=== PATIENT | male | born 1955 | race Caucasian/White ===

== ENCOUNTER 2018-05-11 09:23 | Inpatient (IN) | payer OTHER ==
[~2018-05-11] VITALS: Ht 175.3 cm; Wt 93.4 kg
[2018-05-11] MEDS ORDERED: ACETAMINOPHEN 325MG TABLET PO ONE (10:15)
[2018-05-11] MEDS ORDERED: ROSU5TAB10 PO (10:18)
[2018-05-11] MEDS ORDERED: ALLO300T74 PO (10:18)
[2018-05-11] MEDS ORDERED: CYAN100096 PO (10:18)
[2018-05-11] MEDS ORDERED: ROSU5TAB10 MT (10:18)
[2018-05-11] MEDS ORDERED: LISI-604 PO (10:18)
[2018-05-11] MEDS ORDERED: THIA100T72 MT (10:18)
[2018-05-11] MEDS ORDERED: FURO40TA5 PO (10:18)
[2018-05-11 10:37] LABS: BASOPHILS % 0.6 % (0.0-2.0); EOSINOPHILS % 1.3 % (0.0-5.0); HEMATOCRIT. 38.3 % (42.0-52.0); HEMOGLOBIN. 12.9 g/dL (14.0-18.0); LYMPHOCYTES % 11.2 % (20.0-50.0); MEAN CORPUSCULAR HEMOGLOBIN 31.6 pg (28.0-32.0); MEAN CORPUSCULAR VOLUME 93.9 fL (80.0-94.0); MEAN PLATELET VOLUME 7.6 fl (7.4-10.4); NEUTROPHILS % 80.9 % (40.0-76.0); PLATELET 308 x1000/uL (130-400); RED BLOOD CELL COUNT 4.08 mill/uL (4.7-6.1); RED CELL DISTRIBUTION WIDTH 15.4 % (11.6-14.6)
[2018-05-11 10:48] LABS: CHLORIDE 112 mEq/L (98-107)
[2018-05-11] MEDS ORDERED: DOCUSATE SODIUM 100MG CAPSULE PO PRN (11:15)
[2018-05-11] MEDS ORDERED: AMLODIPINE 5MG TABLET PO SCH (11:15)
[2018-05-11] MEDS ORDERED: ONDANSETRON HCL 4MG/2ML INJ IV PRN (11:15)
[2018-05-11] MEDS ORDERED: ACETAMINOPHEN 325MG TABLET PO PRN (11:15)
[2018-05-11] MEDS ORDERED: CLONIDINE 0.1MG TABLET PO PRN ×2 (11:15→12:45)
[2018-05-11] MEDS ORDERED: SODIUM POLYSTYRENE SULFONATE 15 G/60 ML BOT PO NR (11:30)
[2018-05-11] MEDS: PANTOPRAZOLE 40MG DR TABLET PO SCH (11:50)
[2018-05-11] MEDS ORDERED: CLONIDINE 0.2MG TABLET PO PRN (12:45)
[2018-05-11] MEDS ORDERED: HYDRALAZINE HCL 25MG TABLET PO SCH (14:00)
[2018-05-11] MEDS: FUROSEMIDE 40MG/4ML VIAL IV SCH (14:57)
[2018-05-11] MEDS: CLONIDINE 0.1MG TABLET PO SCH ×2 (15:00→21:55)
[2018-05-11 15:55] LABS: CLARITY URINE CLOUDY (CLEAR); COLOR URINE YELLOW (YELLOW); KETONES URINE NEGATIVE (NEGATIVE); LEUKOCYTE ESTERASE URINE NEGATIVE (NEGATIVE); NITRITE URINE NEGATIVE (NEGATIVE); OCCULT BLOOD URINE 2+ (NEGATIVE); PH URINE 5.5 (4.5-8.0); PROTEIN URINE 4+ (NEGATIVE); SPECIFIC GRAVITY URINE 1.026 (1.005-1.030); UROBILINOGEN URINE 0.2 E.U./dL (0.2-1.0)
[2018-05-11] MEDS: HYDRALAZINE HCL 25MG TABLET PO SCH ×2 (16:05→21:54)
[2018-05-11 16:08] LABS: *AMPHETAMINES SCREEN URINE NEGATIVE (NEGATIVE); *BARBITURATES SCREEN URINE NEGATIVE (NEGATIVE); *BENZODIAZEPINES SCREEN URINE NEGATIVE (NEGATIVE); *COCAINE SCREEN URINE NEGATIVE (NEGATIVE); CANNABINOID URINE SCREEN PRESUMTIVE POSITIVE (NEGATIVE); METHADONE URINE SCREEN NEGATIVE (NEGATIVE); OPIATES URINE SCREEN NEGATIVE (NEGATIVE); PHENCYCLIDINE URINE SCREEN NEGATIVE (NEGATIVE)
[2018-05-11] MEDS: AMLODIPINE 5MG TABLET PO SCH (17:00)
[2018-05-11] MEDS ORDERED: HYDROCORTISONE ACETATE 25MG SUPP PR NR (18:00)
[2018-05-11 20:40] VITALS: BP 132/83
[2018-05-11] MEDS ORDERED: ATORVASTATIN CALCIUM 10MG TABLET PO SCH (21:00)
[2018-05-11] MEDS: HYDROCORTISONE ACETATE 25MG SUPP PR SCH (22:17)
[2018-05-11 23:12] VITALS: BP 132/83
[2018-05-12] VITALS (16 sets, daily range): BP systolic 134–180; BP diastolic 80–100
[2018-05-12] MEDS ORDERED: TEMAZEPAM 15MG CAPSULE PO PRN (01:15)
[2018-05-12] MEDS ORDERED: CEFTRIAXONE 1 G PREMIX 50 ML IV SCH (05:00)
[2018-05-12] MEDS: HYDRALAZINE HCL 25MG TABLET PO SCH ×3 (06:00→21:05)
[2018-05-12 06:24] LABS: BASOPHILS % 0.6 % (0.0-2.0); EOSINOPHILS % 1.6 % (0.0-5.0); HEMATOCRIT. 35.5 % (42.0-52.0); HEMOGLOBIN. 11.8 g/dL (14.0-18.0); LYMPHOCYTES % 15.8 % (20.0-50.0); MEAN CORPUSCULAR VOLUME 93.4 fL (80.0-94.0); MEAN PLATELET VOLUME 8.2 fl (7.4-10.4); MONOCYTES % 8.1 % (2.0-8.0); NEUTROPHILS % 73.9 % (40.0-76.0); PLATELET 288 x1000/uL (130-400); RED CELL DISTRIBUTION WIDTH 15.5 % (11.6-14.6)
[2018-05-12] MEDS: FUROSEMIDE 40MG/4ML VIAL IV SCH ×2 (06:32→19:01)
[2018-05-12 06:37] LABS: CHLORIDE 113 mEq/L (98-107)
[2018-05-12 06:50] LABS: CREATINE KINASE 277 IU/L (39-308); CREATINE KINASE MB FRACTION 5.2 ng/mL (0.5-3.6); HDL CHOLESTEROL 46 mg/dL (40-59); LDL CHOLESTEROL 137 mg/dL (5-100)
[2018-05-12] MEDS: PANTOPRAZOLE 40MG DR TABLET PO SCH (07:20)
[2018-05-12 07:50] LABS: PARTIAL THROMBOPLASTIN TIME 33.4 sec (23.4-31.0); PROTHROMBIN TIME 9.8 sec (9.1-11.1)
[2018-05-12] MEDS: AMLODIPINE 5MG TABLET PO SCH ×2 (09:00→18:58)
[2018-05-12] MEDS: CITRIC ACID/SODIUM CITRATE SOLN 30ML UDC PO SCH ×3 (09:00→18:57)
[2018-05-12] MEDS: CLONIDINE 0.1MG TABLET PO SCH ×2 (09:00→21:05)
[2018-05-12] MEDS: HYDROCORTISONE ACETATE 25MG SUPP PR SCH ×2 (09:00→21:00)
[2018-05-12] MEDS: DEXT 5%/0.45% NACL 1000ML 1,000 ML IV SCH (09:19)
[2018-05-12] MEDS: CEFTRIAXONE 1 G PREMIX 50 ML IV SCH (09:29)
[2018-05-12] MEDS ORDERED: LIDOCAINE HCL 1% 20ML VIAL (Pyxis) INJ ONE (11:16)
[2018-05-12] MEDS ORDERED: SODIUM BICARBONATE 4% (2.4MEQ) 5ML VIAL IV ONE (11:16)
[2018-05-12] MEDS ORDERED: FENTANYL CITRATE/PF 50MCG/ML 2ML VIAL ONE (11:26)
[2018-05-12] MEDS ORDERED: FENTANYL CITRATE/PF 50MCG/ML 2ML VIAL IV ONE (12:15)
[2018-05-12 16:34] LABS: HEMATOCRIT 38.1 % (42.0-52.0); HEMOGLOBIN 12.6 g/dL (14.0-18.0)
[2018-05-12] MEDS ORDERED: ATORVASTATIN CALCIUM 40MG TABLET PO SCH (21:00)
[2018-05-13] VITALS (7 sets, daily range): BP systolic 106–138; BP diastolic 61–80
[2018-05-13] MEDS: PANTOPRAZOLE 40MG DR TABLET PO SCH (06:21)
[2018-05-13] MEDS: HYDRALAZINE HCL 25MG TABLET PO SCH ×2 (06:21→14:47)
[2018-05-13] MEDS: FUROSEMIDE 40MG/4ML VIAL IV SCH (06:55)
[2018-05-13 07:16] LABS: BASOPHILS % 0.8 % (0.0-2.0); EOSINOPHILS % 1.8 % (0.0-5.0); HEMATOCRIT. 34.4 % (42.0-52.0); HEMOGLOBIN. 11.7 g/dL (14.0-18.0); LYMPHOCYTES % 14.3 % (20.0-50.0); MEAN CORPUSCULAR HEMOGLOBIN 31.7 pg (28.0-32.0); MEAN CORPUSCULAR VOLUME 93.4 fL (80.0-94.0); MEAN PLATELET VOLUME 8.1 fl (7.4-10.4); MONOCYTES % 7.8 % (2.0-8.0); NEUTROPHILS % 75.3 % (40.0-76.0); PLATELET 274 x1000/uL (130-400); RED BLOOD CELL COUNT 3.68 mill/uL (4.7-6.1); RED CELL DISTRIBUTION WIDTH 15.7 % (11.6-14.6)
[2018-05-13] MEDS: DEXT 5%/0.45% NACL 1000ML 1,000 ML IV SCH (08:45)
[2018-05-13] MEDS: CLONIDINE 0.1MG TABLET PO SCH (09:00)
[2018-05-13] MEDS: AMLODIPINE 5MG TABLET PO SCH (09:00)
[2018-05-13] MEDS: HYDROCORTISONE ACETATE 25MG SUPP PR SCH (09:00)
[2018-05-13] MEDS: CITRIC ACID/SODIUM CITRATE SOLN 30ML UDC PO SCH ×2 (09:21→13:29)
[2018-05-13] MEDS: CEFTRIAXONE 1 G PREMIX 50 ML IV SCH (09:21)
[2018-05-13 10:57] LABS: PHOSPHORUS 4.9 mg/dL (2.5-4.9)
[2018-05-14] MEDS ORDERED: FAMOTIDINE 20MG TABLET PO SCH (09:00)
== END 2018-05-13 16:25 | disposition home or self-care (01) | DRG 682 ==
LOC: ER 10:45 → 6WST 12:27 → EDBEDREQ 12:33 → SUPCPDRO 17:21 → ENRESERV 19:01
PROVIDERS: ADMIT Internal Medicine; ATTEND Internal Medicine
PROC: 0TB13ZX Excision of Left Kidney, Percutaneous Approach, Diagnostic (ICD-10-PCS; principal; 2018-05-12)
DX: N17.9 Acute kidney failure, unspecified (principal); E43 Unspecified severe protein-calorie malnutrition; D68.59 Other primary thrombophilia; E87.2 Acidosis; E87.5 Hyperkalemia; D63.1 Anemia in chronic kidney disease; E78.5 Hyperlipidemia, unspecified; E78.00 Pure hypercholesterolemia, unspecified; M10.9 Gout, unspecified; N18.9 Chronic kidney disease, unspecified; E88.09 Other disorders of plasma-protein metabolism, not elsewhere classified; R60.0 Localized edema; E03.9 Hypothyroidism, unspecified; F12.90 Cannabis use, unspecified, uncomplicated; F41.9 Anxiety disorder, unspecified; I12.9 Hypertensive chronic kidney disease with stage 1 through stage 4 chronic kidney disease, or unspecified chronic kidney disease; K21.9 Gastro-esophageal reflux disease without esophagitis; Z87.441 Personal history of nephrotic syndrome; Z79.899 Other long term (current) drug therapy; Z87.891 Personal history of nicotine dependence; Z91.14 Patient's other noncompliance with medication regimen; Z68.30 Body mass index [BMI] 30.0-30.9, adult
CPT/HCPCS: 36415; 71045; 77012; 78582; 80048; 80061; 80305; 82550; 82553; 82570; 83735; 84100; 84156; 84439; 84443; 84484; 84550; 85014; 85018; 85379; 88305; 88346; 88348; 93005; 93306; 93970; 96374; 99285; A9558; C1893; J0696; J1940; J3010; J3490; J7050